=== PATIENT | male | born 1960 | race African-American/Black ===

== ENCOUNTER 2022-03-31 11:59 | Emergency (ER) | payer MEDICAID, OTHER ==
[~2022-03-31] VITALS: Ht 180.3 cm; Wt 95.0 kg
[2022-03-31] MEDS ORDERED: KETOROLAC 30MG/ML VIAL IV ONE (14:30)
[2022-03-31 14:47] LABS: BASOPHILS % 0.2 % (0.0-2.0); EOSINOPHILS % 0.1 % (0.0-5.0); HEMATOCRIT. 40.2 % (42.0-52.0); HEMOGLOBIN. 13.3 g/dL (14.0-18.0); LYMPHOCYTES % 18.7 % (20.0-50.0); MEAN CORPUSCULAR HEMOGLOBIN 26.3 pg (28.0-32.0); MEAN CORPUSCULAR VOLUME 79.5 fL (80.0-94.0); MEAN PLATELET VOLUME 8.7 fl (7.4-10.4); MONOCYTES % 8.3 % (2.0-8.0); NEUTROPHILS % 72.7 % (40.0-76.0); PLATELET 166 x1000/uL (130-400); RED BLOOD CELL COUNT 5.06 mill/uL (4.7-6.1); RED CELL DISTRIBUTION WIDTH 15.1 % (11.6-14.6)
[2022-03-31 15:54] LABS: CHLORIDE 108 mEq/L (98-107)
[2022-03-31 16:03] LABS: ETHANOL BLOOD < 10 mg/dL
[2022-03-31 17:20] LABS: CLARITY URINE CLEAR (CLEAR); COLOR URINE YELLOW (YELLOW); KETONES URINE NEGATIVE (NEGATIVE); LEUKOCYTE ESTERASE URINE NEGATIVE (NEGATIVE); NITRITE URINE NEGATIVE (NEGATIVE); OCCULT BLOOD URINE NEGATIVE (NEGATIVE); PROTEIN URINE 1+ (NEGATIVE); SPECIFIC GRAVITY URINE 1.016 (1.005-1.030)
[2022-03-31 17:49] LABS: *AMPHETAMINES SCREEN URINE NEGATIVE (NEGATIVE); *BARBITURATES SCREEN URINE NEGATIVE (NEGATIVE); *BENZODIAZEPINES SCREEN URINE PRESUMTIVE POSITIVE (NEGATIVE); *COCAINE SCREEN URINE NEGATIVE (NEGATIVE); CANNABINOID URINE SCREEN NEGATIVE (NEGATIVE); METHADONE URINE SCREEN NEGATIVE (NEGATIVE); OPIATES URINE SCREEN NEGATIVE (NEGATIVE); PHENCYCLIDINE URINE SCREEN NEGATIVE (NEGATIVE)
[2022-03-31 18:41] VITALS: BP 168/96
== END 2022-03-31 18:47 | disposition home or self-care (01) ==
LOC: ER 12:50
DX: G40.909 Epilepsy, unspecified, not intractable, without status epilepticus (principal); R03.0 Elevated blood-pressure reading, without diagnosis of hypertension; S00.512A Abrasion of oral cavity, initial encounter; R94.31 Abnormal electrocardiogram [ECG] [EKG]; D72.829 Elevated white blood cell count, unspecified; R90.82 White matter disease, unspecified; I50.9 Heart failure, unspecified; I51.7 Cardiomegaly; Z95.0 Presence of cardiac pacemaker; X58.XXXA Exposure to other specified factors, initial encounter; Y93.89 Activity, other specified; Y92.89 Other specified places as the place of occurrence of the external cause
CPT/HCPCS: 36415; 80053; 80305; 80320; 81003; 85025; 93005; 99285; G0480

== ENCOUNTER 2022-08-01 08:09 | Emergency (ER) | payer MEDICAID, OTHER ==
[~2022-08-01] VITALS: Ht 175.3 cm; Wt 87.0 kg
[2022-08-01] MEDS ORDERED: LEVETIRACETAM 1000MG PREMIX 100 ML IV ONE (08:45)
[2022-08-01 11:39] LABS: BASOPHILS % 0.4 % (0.0-2.0); EOSINOPHILS % 0.1 % (0.0-5.0); HEMATOCRIT. 39.7 % (42.0-52.0); HEMOGLOBIN. 13.1 g/dL (14.0-18.0); LYMPHOCYTES % 20.2 % (20.0-50.0); MEAN PLATELET VOLUME 9.5 fl (7.4-10.4); NEUTROPHILS % 73.3 % (40.0-76.0); PLATELET 141 x1000/uL (130-400); RED BLOOD CELL COUNT 5.03 mill/uL (4.7-6.1); RED CELL DISTRIBUTION WIDTH 15.5 % (11.6-14.6)
[2022-08-01 11:48] LABS: CHLORIDE 113 mEq/L (98-107)
[2022-08-01 12:00] VITALS: BP 160/97
== END 2022-08-01 13:09 | disposition home or self-care (01) ==
LOC: ER 08:22
DX: R56.9 Unspecified convulsions (principal); R53.1 Weakness; R42 Dizziness and giddiness; I11.0 Hypertensive heart disease with heart failure; I50.9 Heart failure, unspecified; Z95.0 Presence of cardiac pacemaker
CPT/HCPCS: 36415; 80053; 85025; 96374; 99283; J1953; Z7610

== ENCOUNTER 2022-12-14 22:59 | Emergency (ER) | payer MEDICAID, OTHER ==
[~2022-12-14] VITALS: Ht 175.3 cm; Wt 87.0 kg
[2022-12-14 23:02] VITALS: TEMP 99.9; O2SAT 99
[2022-12-14 23:47] LABS: BASOPHILS % 0.2 % (0.0-2.0); EOSINOPHILS % 0.6 % (0.0-5.0); HEMOGLOBIN. 12.5 g/dL (14.0-18.0); LYMPHOCYTES % 27.9 % (20.0-50.0); MEAN CORPUSCULAR HEMOGLOBIN 26.1 pg (28.0-32.0); MEAN CORPUSCULAR VOLUME 79.5 fL (80.0-94.0); MEAN PLATELET VOLUME 9.6 fl (7.4-10.4); NEUTROPHILS % 61.3 % (40.0-76.0); PLATELET 135 x1000/uL (130-400); RED BLOOD CELL COUNT 4.78 mill/uL (4.7-6.1); RED CELL DISTRIBUTION WIDTH 15.9 % (11.6-14.6)
[2022-12-14 23:54] LABS: CHLORIDE 112 mEq/L (98-107)
[2022-12-15 00:04] LABS: ETHANOL BLOOD < 10 mg/dL (-10)
[2022-12-15] MEDS ORDERED: LORAZEPAM 2MG/ML CPJ ONE (00:34)
[2022-12-15] MEDS ORDERED: LEVETIRACETAM 500 MG in SODIUM CHLORIDE 0.9% 100 ML IV SCH (00:45)
[2022-12-15] MEDS ORDERED: LORAZEPAM 2MG/ML CPJ IV ONE (00:45)
[2022-12-15] MEDS ORDERED: LEVETIRACETAM 500MG PREMIX 100 ML IV ONE (00:45)
[2022-12-15] MEDS ORDERED: KCL 10MEQ/50ML PREMIX 50 ML IV ONE (01:00)
[2022-12-15 02:51] LABS: CLARITY URINE CLOUDY (CLEAR); COLOR URINE DARK YELLOW (YELLOW); KETONES URINE TRACE (NEGATIVE); LEUKOCYTE ESTERASE URINE NEGATIVE (NEGATIVE); NITRITE URINE NEGATIVE (NEGATIVE); OCCULT BLOOD URINE TRACE (NEGATIVE); PROTEIN URINE 3+ (NEGATIVE); SPECIFIC GRAVITY URINE 1.035 (1.005-1.030)
[2022-12-15 03:02] LABS: *AMPHETAMINES SCREEN URINE NEGATIVE (NEGATIVE); *BARBITURATES SCREEN URINE NEGATIVE (NEGATIVE); *BENZODIAZEPINES SCREEN URINE NEGATIVE (NEGATIVE); *COCAINE SCREEN URINE NEGATIVE (NEGATIVE); CANNABINOID URINE SCREEN NEGATIVE (NEGATIVE); METHADONE URINE SCREEN NEGATIVE (NEGATIVE); OPIATES URINE SCREEN NEGATIVE (NEGATIVE); PHENCYCLIDINE URINE SCREEN NEGATIVE (NEGATIVE)
[2022-12-15 03:20] VITALS: BP 155/84; PULSE 76; RESP 18
== END 2022-12-15 03:40 | disposition home or self-care (01) ==
LOC: ER 22:59
DX: R56.9 Unspecified convulsions (principal); I11.0 Hypertensive heart disease with heart failure; I50.9 Heart failure, unspecified; Z95.0 Presence of cardiac pacemaker
CPT/HCPCS: 80053; 80320; 85025; 36415; 99284; 80305; 81003; 96367; 96365; 96375; Z7610; J1953; J2060; J3480; J7050; G0480